=== PATIENT | female | born 1990 | race Caucasian/White ===

== ENCOUNTER 2017-05-22 17:20 | Emergency (ER) | payer OTHER ==
[~2017-05-22] VITALS: Ht 172.7 cm; Wt 70.3 kg
[2017-05-22 17:20] VITALS: BP 114/76
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
--- NOTE | 2017-05-22 17:23 | NUR ---
PT AMBULATED TO CHD
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
[2017-05-22 18:46] VITALS: BP 114/76
--- NOTE | 2017-05-22 18:46 | NUR ---
Patient discharged with v/s stable. Written and verbal after care instructions given and explained. Patient verbalized understanding. Ambulatory with steady gait. All questions addressed prior to discharge. Advised to follow up with PMD.
== END 2017-05-22 18:46 | disposition home or self-care (01) ==
LOC: MED 17:20
DX: S40.011A Contusion of right shoulder, initial encounter (principal); Z71.6 Tobacco abuse counseling; V49.40XA Driver injured in collision with unspecified motor vehicles in traffic accident, initial encounter; Y93.89 Activity, other specified; Y92.488 Other paved roadways as the place of occurrence of the external cause; Y99.8 Other external cause status
CPT/HCPCS: 73030; 99284

== ENCOUNTER 2020-10-14 23:59 | Emergency (ER) | payer OTHER ==
[~2020-10-14] VITALS: Ht 170.2 cm; Wt 81.6 kg
[2020-10-15 00:03] VITALS: BP 130/87
--- NOTE | 2020-10-15 00:05 | NUR ---
TO LOBBY A/W BED AMBULATORY
--- NOTE | 2020-10-15 01:55 | NUR ---
PT AMBULATED TO BED #3
[2020-10-15 02:13] LABS: BASOPHILS # (AUTO) 0.1 K/uL (0.00-0.22); BASOPHILS % (AUTO) 0.7 % (0.0-2.0); EOSINOPHILS # (AUTO) 0.1 K/uL (0-0.4); EOSINOPHILS % (AUTO) 1.8 % (0.0-4.0); HEMATOCRIT 41.9 % (36-48); HEMOGLOBIN 13.8 g/dL (12.0-16.0); LYMPHOCYTES # (AUTO) 1.9 K/uL (2.5-16.5); LYMPHOCYTES % (AUTO) 24.2 % (20.5-51.1); MEAN CORPUSCULAR HEMOGLOBIN 30 pg (27-31); MEAN CORPUSCULAR HGB CONC 33 g/dL (33-37); MEAN CORPUSCULAR VOLUME 89.7 fL (80-94); MONOCYTES # (AUTO) 0.5 K/uL (0.8-1.0); MONOCYTES % (AUTO) 6.9 % (1.7-9.3); NEUTROPHILS # (AUTO) 5.1 K/uL (1.8-7.7); NEUTROPHILS % (AUTO) 66.4 % (42.2-75.2); PLATELET COUNT (AUTO) 388 K/uL (140-450); RED BLOOD CELL COUNT(AUTO) 4.67 MIL/uL (4.20-5.40); RED CELL DISTRIBUTION WIDTH 13.8 % (11.6-13.7); WHITE BLOOD COUNT (AUTO) 7.7 K/uL (4.8-10.8)
[2020-10-15 02:22] LABS: ANION GAP 12.2 (8-16); CARBON DIOXIDE 30.4 mmol/L (21-32); CREATININE 0.9 mg/dL (0.6-1.3); POTASSIUM 3.6 mmol/L (3.5-5.1)
--- NOTE | 2020-10-15 02:30 | NUR ---
C/O NOT BEING ABLE TO TALK DUE TO "NOT GETTING ENOUGH BLOOD IN MY HEAD", LIGHTHEADED, ANXIETY FOR 2 MONTHS. PATIENT EMOTIONALLY LABILE AND SEEM TO BE DISTRESSED-- CRYING, SAD, AND SMILING. PATIENT ASKING FOR BLOOD SHOTS DUE TO LEUKEMIA AND PEOPLE KEEP TAKING AWAY HER BLOOD. PATIENT AAOx2- DOES NOT KNOW PLACE, CONFUSED. PMH ACCORDING TO PATIENT: SCHIZOPHRENIA, LEUKEMIA, CIRRHOSIS NKA
[2020-10-15 02:48] LABS: BARBITURATE, URINE NEGATIVE ng/ml (NEG <=200)
[2020-10-15 02:49] LABS: BENZODIAZEPINE, URINE POSITIVE ng/mL (NEG <=200); CANNABINOID, URINE NEGATIVE ng/mL (NEG <=50); COCAINE, URINE POSITIVE ng/mL (NEG <=300); OPIATE, URINE POSITIVE ng/mL (NEG <=2000); PHENCYCLIDINE SCREEN,URINE NEGATIVE ng/mL (NEG <=25)
--- NOTE | 2020-10-15 03:09 | NUR ---
PER TELEPSYCH REQUEST INITIATED CONNECT ID [id number]
--- NOTE | 2020-10-15 03:20 | NUR ---
PT AMBULATED TO RESTROOM, STEADY GAIT OBSERVED.
[2020-10-15 03:36] VITALS: BP 109/79
--- NOTE | 2020-10-15 03:40 | NUR ---
ERMD at bedside speaking with patient per patient request
--- NOTE | 2020-10-15 03:48 | NUR ---
Patient aggressive & yelling & has come out of the room wanting lab results but disrupting the environment. Another attemption of de-escalation but patient persistent and aggressive.
--- NOTE | 2020-10-15 03:50 | NUR ---
patient requesting to leave AMA but refusing to sign paperwork
--- NOTE | 2020-10-15 03:57 | NUR ---
patient agitated and aggressively vocal, attempted to re-orient and de-escalate the situation patient but has started to yell profanities disrupting the environment.
--- NOTE | 2020-10-15 04:10 | NUR ---
Patient discharged with v/s stable. Written and verbal after care instructions given and explained. Patient verbalized understanding. Ambulatory with steady gait. ID band removed. All questions addressed prior to discharge. Advised to follow up with PMD.
--- NOTE | 2020-10-15 04:10 | NUR ---
patient refusing to sign AMA paperwork form
--- NOTE | 2020-10-15 04:13 | NUR ---
CALLED [facility]LE[facility], S/W ELAN TELEPSYCH REQUEST CANCELLED
--- NOTE | 2020-10-15 04:35 | NUR ---
Mother called on updates with daughter #[phone]
== END 2020-10-15 04:10 | disposition left against medical advice (07) ==
LOC: MED 23:59
DX: R06.02 Shortness of breath (principal); F22 Delusional disorders; R42 Dizziness and giddiness; R53.83 Other fatigue
CPT/HCPCS: 36415; 80048; 80305; 84443; 85025; 93005; 99284; G0482

== ENCOUNTER 2021-09-13 04:58 | Emergency (ER) | payer OTHER ==
[~2021-09-13] VITALS: Ht 170.2 cm; Wt 77.1 kg
[2021-09-13 05:00] VITALS: BP 119/76
--- NOTE | 2021-09-13 05:00 | NUR ---
TO BED AMBULATORY
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
--- NOTE | 2021-09-13 06:17 | NUR ---
Dr. Stewart examining patient.
[2021-09-13] MEDS ORDERED: IBUP-2213 PO (06:30)
[2021-09-13] MEDS ORDERED: CEPH500C16 PO (06:30)
[2021-09-13 06:35] VITALS: BP 122/74
--- NOTE | 2021-09-13 06:36 | NUR ---
Patient discharged with v/s stable. Written and verbal after care instructions given and explained. Patient alert, oriented and verbalized understanding of instructions. Ambulatory with steady gait. All questions addressed prior to discharge. ID band removed. Patient advised to follow up with PMD. Rx of IBUPROFEN AND KEFLEX given. Patient educated on indication of medication including possible reaction and side effects. Opportunity to ask questions provided and answered. A/OX4, VSS, AMBULATORY, UNLABORED BREATHING, AND CALM DEMEANOR.
== END 2021-09-13 06:36 | disposition home or self-care (01) ==
LOC: MED 04:58
DX: L03.116 Cellulitis of left lower limb (principal); L02.416 Cutaneous abscess of left lower limb; F17.200 Nicotine dependence, unspecified, uncomplicated; F15.90 Other stimulant use, unspecified, uncomplicated
CPT/HCPCS: 99283